=== PATIENT | female | born 1995 | race Caucasian/White ===

== ENCOUNTER 2017-03-23 13:45 | Emergency (ER) | payer OTHER ==
[2017-03-23] MEDS ORDERED: Acetaminophen ADULT LIQ* 650 MG/20.3 ML UDC PO ONE (14:52)
[2017-03-23] MEDS ORDERED: Acetaminophen ADULT LIQ* 650 MG/20.3 ML UDC ONE (14:54)
[2017-03-23 15:29] LABS: ABS Basophils 0 10^3/ul (0-0.2); ABS Eosinophils 0 10^3/ul (0-0.6); ABS Lymphocytes 1.3 10^3/ul (1.0-4.8); ABS Monocytes 0.8 10^3/ul (0-0.8); ABS Neutrophils 9.5 10^3/ul (1.5-7.7); ABS Nucleated RBC 0 10^3/ul; Eosinophil % 0.1 % (0-6); Hematocrit 43 % (35-47); Hemoglobin 14.5 g/dl (12.0-16.0); Lymphocyte % 11.1 % (25-47); Mean Corpuscular HGB Conc 34 g/dl (31-36); Mean Corpuscular Hemoglobin 29 pg (27-31); Mean Corpuscular Volume 85 fL (80-97); Mean Platelet Volume 10 um3 (7.4-10.4); Nucleated Red Blood Cells % 0.2; Platelet Count 202 10^3/ul (150-450); Red Blood Count 5.08 10^6/ul (4.0-5.4); Red Cell Distribution Width 13 % (10.5-15); White Blood Count 11.6 10^3/ul (3.5-10.8)
[2017-03-23] MEDS ORDERED: NS 0.9% 1000 ML*IV.FLUID IV ONE (16:02)
[2017-03-23 16:10] LABS: EGFR Non-African American 88.9 (>60)
--- NOTE | 2017-03-23 16:39 | RAD ---
INDICATION: Cough and fever COMPARISON: None TECHNIQUE: PA and lateral views of the chest were obtained. FINDINGS: The heart and mediastinum are normal in size and contour. There is mild to moderate prior bronchial cuffing depicted better on the lateral view chest x-ray. The lungs are grossly clear. There is no evidence of large pleural effusion. Visualized bones are normal for the patient's age. There is no radiographic evidence of free air beneath the diaphragm IMPRESSION: PERIBRONCHIAL CUFFING COULD BE SEEN IN THE SETTING OF VIRAL PNEUMONIA, BRONCHITIS OR OTHER INFLAMMATORY DISEASE OF THE LUNG.
[2017-03-23] MEDS ORDERED: Azithromycin TAB* 250 MG PO ONE (17:15)
[2017-03-23 17:35] VITALS: BP 120/66
--- NOTE | 2017-03-25 08:39 | ED ---
Richard Richey Angela, scribed for Rommel Davis MD on 03/23/17 at 1549 . Influenza-Like Illness - HPI Summary HPI Summary: This pt is a 21 y/o female [facility] c/o nasal congestion and cough x3 days. Pt reports today she woke up with a fever and diaphoresis. She notes she didn't take her temperature as she didn't have a thermometer. Pt additionally notes sore throat. She denies runny nose, sinus tenderness. Pt notes she has enlarged tonsils. Denies PMHx. - History of Current Complaint Chief Complaint: EDFluSymptoms Time Seen by Provider: 03/23/17 15:26 Hx Obtained From: Patient Onset/Duration: Lasting Days, Still Present Severity: Moderate Associated Signs & Symptoms: Fever, Cough, Sore Throat, Nasal Congestion - Allergy/Home Medications Allergies/Adverse Reactions: Allergies Allergy/AdvReac Type Severity Reaction Status Date / Time No Known Allergies Allergy Verified 03/23/17 15:20 PMH/Surg Hx/FS Hx/Imm Hx Endocrine/Hematology History: Denies: Hx Diabetes Cardiovascular History: Denies: Hx Hypertension - Surgical History Surgery Procedure, Year, and Place: none Infectious Disease History: No Infectious Disease History: Denies: Traveled Outside the [place] in Last 30 Days - Family History Known Family History: Negative: Cardiac Disease, Hypertension, Diabetes - Social History Alcohol Use: Occasionally Substance Use Type: Reports: None Smoking Status (MU): Never Smoked Tobacco Review of Systems Positive: Fever, Skin Diaphoresis ENT: Other - nasal congestion Positive: Sore Throat. Negative: Nasal Discharge Positive: Cough Skin: Negative Neurological: Negative All Other Systems Reviewed And Are Negative: Yes Physical Exam - Summary Physical Exam Summary: VITAL SIGNS: Reviewed. GENERAL: Patient is a well-developed and nourished female who is lying comfortable in the stretcher. Patient is not in any acute respiratory distress. HEAD AND FACE: No signs of trauma. No ecchymosis, hematomas or skull depressions. No sinus tenderness. Erythema in the nasal mucosa. EYES: PERRLA, EOMI x 2, No injected conjunctiva, no nystagmus. EARS: Hearing grossly intact. Ear canals and tympanic membranes are within normal limits. MOUTH: Pharyngeal erythema. NECK: Supple, trachea is midline, no adenopathy, no JVD, no carotid bruit, no c- spine tenderness, neck with full ROM. CHEST: Symmetric, no tenderness at palpation LUNGS: Crackles in both bases of the lungs. CVS: Regular rate and rhythm, S1 and S2 present, no murmurs or gallops appreciated. ABDOMEN: Soft, non-tender. No signs of distention. No rebound no guarding, and no masses palpated. Bowel sounds are normal. EXTREMITIES: FROM in all major joints, no edema, no cyanosis or clubbing. NEURO: Alert and oriented x 3. No acute neurological deficits. Speech is normal and follows commands. SKIN: Dry and warm Triage Information Reviewed: Yes Vital Signs On Initial Exam: Initial Vitals Temp Pulse Resp BP Pulse Ox 101.5 F 142 18 140/73 98 03/23/17 13:49 03/23/17 13:49 03/23/17 13:49 03/23/17 13:49 03/23/17 13:49 Vital Signs Reviewed: Yes Diagnostics - Vital Signs Vital Signs Temp Pulse Resp BP Pulse Ox 03/23/17 14:57 101.6 F 133 16 135/63 98 03/23/17 13:49 101.5 F 142 18 140/73 98 - Laboratory Lab Results: Lab Results 03/23/17 03/23/17 03/23/17 Range/Units 14:26 14:27 15:11 WBC 11.6 H (3.5-10.8) 10^3/ul RBC 5.08 (4.0-5.4) 10^6/ul Hgb 14.5 (12.0-16.0) g/dl Hct 43 (35-47) % MCV 85 (80-97) fL MCH 29 (27-31) pg MCHC 34 (31-36) g/dl RDW 13 (10.5-15) % Plt Count 202 (150-450) 10^3/ul MPV 10 (7.4-10.4) um3 Neut % (Auto) 81.6 (38-83) % Lymph % (Auto) 11.1 L (25-47) % [place] % (Auto) 6.9 (1-9) % Eos % (Auto) 0.1 (0-6) % Baso % (Auto) 0.3 (0-2) % Absolute Neuts (auto) 9.5 H (1.5-7.7) 10^3/ul Absolute Lymphs (auto) 1.3 (1.0-4.8) 10^3/ul Absolute Monos (auto) 0.8 (0-0.8) 10^3/ul Absolute Eos (auto) 0 (0-0.6) 10^3/ul Absolute Basos (auto) 0 (0-0.2) 10^3/ul Absolute Nucleated RBC 0 10^3/ul Nucleated RBC % 0.2 Monoscreen Pending Influenza A (Rapid) Negative (Negative) Influenza B (Rapid) Negative (Negative) Group A Strep Rapid Negative (Negative) Result Diagrams: 03/23/17 15:11 03/23/17 15:11 Lab Statement: Any lab studies that have been ordered have been reviewed, and results considered in the medical decision making process. - Radiology Chest XR Xray Interpretation: Positive (See Comments) - IMPRESSION: Peribronchial cuffing could be seen in the setting of viral pneumonia, bronchitis, or other inflammatory disease of the lung. Dr. Davis has reviewed this radiology report. Radiology Interpretation Completed By: Radiologist Flu Symptom Course/Dx - Course Assessment/Plan: This pt is a 21 y/o female presenting to [facility] c/o nasal congestion x3 days. Pt reports today she woke up with a fever and diaphoresis. She notes she didn't take her temperature as she didn't have a thermometer. Pt additionally notes sore throat. She denies runny nose, sinus tenderness. Pt notes she has enlarged tonsils. Denies PMHx. Test results show WBC of 11.6. Influenza A and B is negative. Rapid strep is negative. Chest XR: Peribronchial cuffing could be seen in the setting of viral pneumonia, bronchitis, or other inflammatory disease of the lung. In the ED course the pt was given IV fluids, Tylenol for the fever, and I started the pt on azithromycin since she has an elevated WBC and productive cough with yellow sputum. I believe the pt has a bacterial pneumonia. After these medications, the pt is feeling better, is no longer tachycardic and is eating and drinking. The pt will be discharged to home with follow up from her PCP. Pt is hemodynamically stable, alert and oriented x3. - Diagnoses Provider Diagnoses: Pneumonia Discharge - Discharge Plan Condition: Stable Disposition: HOME Prescriptions: Azithromycin TAB* [Zithromax TAB (Z-DOREEN) 250 mg #6 tabs] 250 mg PO DAILY #4 tab Patient Education Materials: Pneumonia (ED) [facility] [Primary Care Provider] - 3 Days Additional Instructions: Please follow up with your primary care provider. RETURN TO THE ED FOR ANY WORSENING SYMPTOMS. The documentation as recorded by the Richard ang Angela accurately reflects the service I personally performed and the decisions made by Ryan guzman Walter, MD.
== END 2017-03-23 17:32 | disposition home or self-care (01) ==
LOC: ED 13:45
DX: J18.9 Pneumonia, unspecified organism (principal)
CPT/HCPCS: 36415; 71046; 80053; 83605; 84702; 85025; 86140; 86308; 87502; 87651; 96360; 99283; A9270-GY